=== PATIENT | male | born 1960 | race Caucasian/White ===

== ENCOUNTER → 2018-10-29 | Outpatient (CLI) | payer OTHER ==
[~2018-10-29] MED LIST: METOPROLOL 100 MG TAB; METOPROLOL 5 MG INJ; NITROGLYCERIN AEROSOL (4.9 GM)
[2018-10-29] MEDS: SOD CHLORIDE 0.9% 100 ML (12:07)
[2018-10-29] MEDS: IOHEXOL 350MG/ML 50 ML BTL (12:08)
== END | disposition home or self-care (01) ==
LOC: C/S 09:03
DX: R94.39 Abnormal result of other cardiovascular function study (principal)
CPT/HCPCS: 75571; 75574

== ENCOUNTER 2018-11-28 10:27 | Emergency (ER) | payer OTHER ==
[2018-11-28 11:07] LABS: ADD MAN DIFF? NO
[2018-11-28 11:21] LABS: BASOPHILS % 0.2 % (0.0-2.0); EOSINOPHILS % 0.1 % (0.0-7.0); HEMATOCRIT 40.6 % (42.0-52.0); HEMOGLOBIN 14.1 g/dl (14.0-18.0); LYMPHOCYTES # 0.6 10^3/ul (0.8-2.9); LYMPHOCYTES % 4.7 % (15.0-51.0); MEAN CORPUSCULAR HEMOGLOBIN 29.3 pg (29.0-33.0); MEAN CORPUSCULAR HGB CONC 34.7 g/dl (32.0-37.0); MEAN CORPUSCULAR VOLUME 84.2 fl (82.0-101.0); MEAN PLATELET VOLUME 11.7 fl (7.4-10.4); MONOCYTE # 0.7 10^3/ul (0.3-0.9); MONOCYTES % 4.8 % (0.0-11.0); NEUTROPHIL # 12.1 10^3/ul (1.6-7.5); NEUTROPHILS % 89.9 % (39.0-77.0); PLATELET COUNT 175 10^3/UL (140-415); RED BLOOD COUNT 4.82 10^6/ul (4.70-6.10); RED CELL DISTRIBUTION WIDTH 13.6 % (11.5-14.5)
[2018-11-28 11:21] LABS: WHITE BLOOD COUNT 13.5 10^3/ul (4.8-10.8)
[2018-11-28 11:29] LABS: ALANINE AMINOTRANSFERASE 25 IU/L (13-69); ALBUMIN 4.5 g/dl (3.3-4.9); ALKALINE PHOSPHATASE 67 IU/L (42-121); ANION GAP 8 (5-13); ASPARTATE AMINO TRANSFERASE 26 IU/L (15-46); BILIRUBIN,INDIRECT 0.4 mg/dl (0-1.1); BILIRUBIN,TOTAL 0.4 mg/dl (0.2-1.3); BLOOD UREA NITROGEN 17 mg/dl (7-20); CALCIUM 9.5 mg/dl (8.4-10.2); CARBON DIOXIDE 28 mmol/L (21-31); CHLORIDE 103 mmol/L (97-110); CREATININE 0.88 mg/dl (0.61-1.24); Estimated GFR > 60 mL/min (>60); GLUCOSE 151 mg/dl (70-220); POTASSIUM 4.1 mmol/L (3.5-5.1); SODIUM 139 mmol/L (135-144)
[2018-11-28 11:40] LABS: TROPONIN-I < 0.012 ng/ml (0.000-0.120)
[2018-11-28] MEDS: ONDANSETRON 4 MG INJ IV (11:53)
[2018-11-28] MEDS: morphine 4 MG/ML VIAL IV (11:53)
[2018-11-28] MEDS: CEFAZOLIN 2 GM/50 ML (PMX) 50 ML IVPB (14:07)
[2018-11-28] MEDS: DIPHTH/TET/ACEL PERTUSS (ADULT) 0.5 ML VIAL IM* (14:14)
== END 2018-11-28 15:06 | disposition short-term general hospital (02) ==
LOC: E/R 10:27
DX: S02.41 LeFort fracture (principal); R55 Syncope and collapse; W18.39XA Other fall on same level, initial encounter; Y92.9 Unspecified place or not applicable; Z23 Encounter for immunization
CPT/HCPCS: 36415; 70486; 71045; 72125; 80053; 84484; 85025; 90471; 90715; 93005; 96374; 96375; 99285-25